=== PATIENT | male | born 1990 | race African-American/Black ===

== ENCOUNTER 2017-07-05 21:09 | Emergency (ER) | payer SELFPAY ==
[~2017-07-05] VITALS: Ht 182.9 cm; Wt 103.0 kg
[~2017-07-05 21:09] MED LIST: DICY1TAB26 PO; LOMO PO; ZOFR4TAB3 SL
[2017-07-05 21:11] VITALS: BP 157/86; PULSE 88; RESP 16; TEMP 101.7; O2SAT 100
--- NOTE | 2017-07-05 23:42 | PD ---
HPI Chief Complaint: Cold / Flu Symptoms Time Seen by Provider: 23:32 Travel History International Travel<30 days: No Contact w/Intl Traveler<30days: No Traveled to known affect area: No History of Present Illness HPI pt is 26 yr old male with onset of fever chill body aches, Took excedrin with minimal relief. + nausea no vomit, no abdo pain slight cough PFSH Past Medical History Asthma: Yes Diminished Hearing: No Respiratory: Yes (Asthma) Integumentary: Yes (ECZEMA) Immunizations Current: Yes Tetanus Vaccination: < 5 Years Influenza Vaccination: No Past Surgical History Surgical History: No Previous Surgery Social History Alcohol Use: No Tobacco Use: No Substance Use: No Allergies-Medications (Allergen,Severity, Reaction): Coded Allergies: cephalexin (Unverified Allergy, Mild, UNKNOWN, 07/05/17) Reported Meds & Prescriptions Reported Meds & Active Scripts Active Diphenhydramine Liq (Diphenhydramine HCl) 12.5 Mg/5 Ml Elix 12.5 Mg PO Q6H PRN Tamiflu (Oseltamivir Phosphate) 75 Mg Cap 75 Mg PO BID Ibuprofen 600 Mg Tab 600 Mg PO Q6H PRN Review of Systems Except as stated in HPI: all other systems reviewed are Neg General / Constitutional: Positive: Fever, Chills HENT: Positive: Sore Throat Respiratory: Positive: Cough Musculoskeletal: Positive: Myalgias Physical Exam Narrative GENERAL pt awake alert non toxic , SKIN: Warm and dry. HEAD: Atraumatic. Normocephalic. EYES: Pupils equal and round. No scleral icterus. No injection or drainage. ENT: No nasal bleeding or discharge. Mucous membranes pink and moist. swollen tonsils NECK: Trachea midline. No JVD. submental nodes neck anterior CARDIOVASCULAR: Regular rate and rhythm. RESPIRATORY: No accessory muscle use. Clear to auscultation. Breath sounds equal bilaterally. GASTROINTESTINAL: Abdomen soft, non-tender, nondistended. Hepatic and splenic margins not palpable. MUSCULOSKELETAL: Extremities without clubbing, cyanosis, or edema. No obvious deformities. NEUROLOGICAL: Awake and alert. No obvious cranial nerve deficits. Motor grossly within normal limits. Five out of 5 muscle strength in the arms and legs. Normal speech. PSYCHIATRIC: Appropriate mood and affect; insight and judgment normal. Data Data Last Documented VS Orders Orders Influenzae A/B Antigen (07/05/17 23:37) Group A Rapid Strep Screen (07/05/17 23:37) Ibuprofen (Motrin) (07/05/17 23:45) Diphenhydramine Liq (Benadryl Liq) (07/05/17 23:45) Pseudoephedrine (Sudafed) (07/05/17 23:45) Strep Culture (Group A) (07/05/17 23:40) Oseltamivir (Tamiflu) (07/06/17 00:30) Guaifen-Cod 200-20 Mg/10ml Liq (Robituss (07/06/17 00:30) Ed Discharge Order (07/06/17 00:49) MDM Medical Decision Making Medical Screen Exam Complete: Yes Emergency Medical Condition: Yes Differential Diagnosis Patient has the flu versus viral illness versus bronchitis versus bacterial Narrative Course Patient is flu positive he is given Tamiflu Benadryl Motrin Sudafed and discharged follow-up as an outpatient I explained that Tamiflu prescription is not necessary and may be expensive so if they cannot afford it is not essential drink plenty of fluids take Motrin Benadryl and folllow up Diagnosis Primary Impression: Influenza A Patient Instructions: General Instructions, Influenza (ED) Scripts Diphenhydramine Liq (Diphenhydramine Liq) 12.5 Mg/5 Ml Elix 12.5 MG PO Q6H Y for ALLERGIES, #1 BOTTLE 0 Refills Prov: Femi Sawant MD 07/06/17 Oseltamivir (Tamiflu) 75 Mg Cap 75 MG PO BID for Mgmt Viral Infection, #10 CAP 0 Refills Prov: Femi Sawant MD 07/06/17 Ibuprofen (Ibuprofen) 600 Mg Tab 600 MG PO Q6H Y for Pain/Inflammation, #40 TAB 0 Refills Prov: Femi Sawant MD 07/06/17 Disposition: 01 DISCHARGE HOME Condition: Good Femi Sawant MD Jul 05, 2017 23:42
[2017-07-05] MEDS ORDERED: PSEUDOEPHEDRINE HCL 30 MG TAB PO ONE (23:45)
[2017-07-05] MEDS ORDERED: diphenhydrAMINE HCL ELIXIR 12.5 MG/5 ML CUP PO ONE (23:45)
[2017-07-05] MEDS ORDERED: IBUPROFEN 600 MG TAB PO ONE (23:45)
[2017-07-06] MEDS ORDERED: guaiFENesin/CODEINE SYRUP 200 MG/20 MG/10 ML CUP PO ONE (00:30)
[2017-07-06] MEDS ORDERED: OSELTAMIVIR PHOSPHATE 75 MG CAP PO ONE (00:30)
[2017-07-06] MEDS ORDERED: OSEL75 PO (00:47)
[2017-07-06] MEDS ORDERED: IBUP-232 PO (00:47)
[2017-07-06] MEDS ORDERED: DIPH12.5S PO (00:48)
== END 2017-07-06 01:16 | disposition home or self-care (01) ==
LOC: NEPC 21:09
DX: J10.1 Influenza due to other identified influenza virus with other respiratory manifestations (principal)
CPT/HCPCS: 87081; 87804; 87880; 99283